=== PATIENT | female | born 1955 | race Caucasian/White ===

== ENCOUNTER → 2017-08-02 | Outpatient (CLI) | payer BC ==
--- NOTE | 2017-08-02 09:18 | RADIOLOGY REPORT (SQ) ---
EXAM DESCRIPTION: MRI HEAD COMBO COMPLETED DATE/TIME: 08/02/2017 8:24 am REASON FOR STUDY: HEADACHE R51 HEADACHE COMPARISON: None. TECHNIQUE: Multiplanar imaging includes noncontrasted T1, T2, FLAIR, diffusion with ADC map and post gadolinium contrast T1 sequences. Images stored on PACS. CONTRAST TYPE AND DOSE: 15 mL Multihance. RENAL FUNCTION: GFR > 60. LIMITATIONS: None. FINDINGS: ANATOMY: No congenital anomalies. Normal vascular flow voids. Pituitary fossa normal. CSF SPACES: Normal in size and contour. No hemorrhage. CEREBRUM: On axial image 20, focal encephalomalacia is present in the left posterior frontal lobe ellen ng the pre and postcentral gyri subcortical white matter, adjacent to the falx. There is no associat ed diffusion-weighted signal abnormality or contrast enhancement. Elsewhere in the brain, mild bipar ietal deep periventricular white matter increased signal is present. These findings could be related to small vessel ischemic change. Demyelinating disease with involvement of subcortical fibers in th e posterior frontal lobe is also possible. These findings are nonacute. No MR evidence of acute ischemic change, acute intracranial hemorrhage, mass effect, or midline shift . POSTERIOR FOSSA: No signal alteration. No hemorrhage. No edema, masses, or mass effect. Internal aishwarya tory canals, cerebellopontine angles, mastoids normal. No enhancing lesions. No abnormal enhancement post contrast. DIFFUSION IMAGING: Negative for acute or subacute infarction. ORBITS: No masses. Globes normal. PARANASAL SINUSES: No fluid levels. Mucosa normal. OTHER: No other significant finding. IMPRESSION: Chronic appearing subcortical white matter increased signal in the left posterior fronta l region, and bilateral periatrial white matter. These changes could be related to the small vessel disease or demyelinating process. No acute findings. EVIDENCE OF ACUTE STROKE: NO. TECHNICAL DOCUMENTATION: JOB ID: [id number] [employer]- All Rights Reserved
== END ==
LOC: RAD 07:29
PROVIDERS: ATTEND Nurse Practitioner Family
DX: R51 Headache (principal)
CPT/HCPCS: 82565; 70553; A9577

== ENCOUNTER → 2017-08-19 | Outpatient (CLI) | payer BC | LOC: WI 08:38 | PROVIDERS: ATTEND Nurse Practitioner Family | DX: Z12.31 Encounter for screening mammogram for malignant neoplasm of breast (principal) | CPT/HCPCS: 77067; G0202 ==